=== PATIENT | male | born 1960 | race Caucasian/White ===

== ENCOUNTER → 2024-08-26 | Outpatient (CLI) | payer OTHER ==
--- NOTE | 2024-08-26 10:31 | US ---
EXAMINATION TYPE: US Aorta Screening DATE OF EXAM: 08/26/2024 COMPARISON: NONE CLINICAL INDICATION: Male, 64 years old with history of F17.200 NICOTINE DEPENDENCE, UNSPECIFIED, [facility] OMPLI; TECHNIQUE: Multiple sonographic images of the abdominal aorta are obtained with grayscale and color D oppler imaging. with grayscale and color Doppler imaging FINDINGS: EXAM MEASUREMENTS: Abdominal Aorta: Proximal: 2.9 x 2.3cm Mid: 2.9 x 2.7cm Distal: 2.8 x 2.8cm Bifurcation: Right Iliac: 1.2 x 1.1cm Left Iliac: 1.1 x 1.2cm Ectatic aorta with atherosclerotic changes IMPRESSION: No evidence for aortic aneurysm. [facility], , 08/26/2024 10:29 AM
== END | disposition home or self-care (01) ==
LOC: RADUSWWP 10:00
PROVIDERS: ATTEND Family Medicine
DX: F17.200 Nicotine dependence, unspecified, uncomplicated
CPT/HCPCS: 76706